=== PATIENT | female | born 1955 | race Caucasian/White ===

== ENCOUNTER → 2016-06-01 | Outpatient (CLI) | payer OTHER ==
[~2016-06-01] MED LIST: ASPI81TA28 PO; B-COTAB53; HYG/25 PO; MULT-506 PO; OSPE1TAB2; POTA1POW; VALA500T60 PO
--- NOTE | 2016-06-02 14:36 | MAMMOGRAPHY REPORT ---
BILATERAL DIGITAL SCREENING MAMMOGRAM TOMOSYNTHESIS WITH CAD: 06/01/2016 CLINICAL HISTORY: Routine screening. Patient has no complaints. TECHNIQUE: Breast tomosynthesis in addition to standard 2D mammography was performed. Current study was also evaluated with a Computer Aided Detection (CAD) system. COMPARISON: Comparison is made to exams dated: 05/14/2015 mammogram, 04/26/2014 mammogram, 04/25/2013 m ammogram, 04/24/2012 mammogram, 04/19/2011 mammogram, and 04/08/2010 mammogram - [facility] enter. BREAST COMPOSITION: The tissue of both breasts is heterogeneously dense, which may obscure small ma sses. FINDINGS: There are two stable benign-appearing calcifications within the right breast. No suspicio us mass, architectural distortion or cluster of new, suspicious microcalcifications is seen. IMPRESSION: ACR BI-RADS CATEGORY 1: NEGATIVE There is no mammographic evidence of malignancy. A 1 year screening mammogram is recommended. The p atient will receive written notification of the results. Approximately 10% of breast cancers are not detected with mammography. A negative mammographic repor t should not delay biopsy if a clinically suggestive mass is present. Brie Us M.D. ay/:06/01/2016 18:27:28 Bail Bonding Agent: Kim Ignacio, [facility] letter sent: Normal 1/2 BI-RADS Code: ACR BI-RADS Category 1: Negative
== END | disposition home or self-care (01) ==
LOC: C.MAMM 14:28
PROVIDERS: ATTEND Family Medicine
DX: Z12.31 Encounter for screening mammogram for malignant neoplasm of breast (principal)

== ENCOUNTER → 2016-10-13 | Outpatient (CLI) | payer OTHER ==
[2016-10-13 14:51] LABS: BLOOD UREA NITROGEN 12 mg/dl (7-18); BUN/CREATININE RATIO 16.8 (10-20); CALCIUM 9.1 mg/dl (8.5-10.1); CARBON DIOXIDE 30 mmol/L (21-32); CHLORIDE 104 mmol/L (98-107); CREATININE 0.74 mg/dl (0.60-1.20); GLUCOSE 112 mg/dl (70-99); MAGNESIUM 2.2 mg/dl (1.8-2.4); PHOSPHORUS 3.2 mg/dl (2.5-4.9); POTASSIUM 3.7 mmol/L (3.5-5.1); SODIUM 137 mmol/L (136-145)
== END | disposition home or self-care (01) ==
LOC: C.LAB1850 13:38
PROVIDERS: ATTEND Internal Medicine Nephrology
DX: N20.0 Calculus of kidney (principal); E55.9 Vitamin D deficiency, unspecified; E87.6 Hypokalemia

== ENCOUNTER → 2016-10-19 | Outpatient (CLI) | payer OTHER ==
[2016-10-19 15:09] LABS: URINE APPEARANCE CLEAR (CLEAR); URINE BILIRUBIN NEG (NEG); URINE COLOR YELLOW; URINE EPITHELIAL CELL AUTO 0-5 /lpf (0-5); URINE NITRITE NEG (NEG); UROBILINOGEN NEG (NEG)
[2016-10-19 15:14] LABS: MANUAL MICROSCOPIC REQUIRED? NO; REVIEW REQ? NO
== END | disposition home or self-care (01) ==
LOC: C.LAB1850 13:56
PROVIDERS: ATTEND Internal Medicine Nephrology
DX: N20.0 Calculus of kidney (principal)

== ENCOUNTER → 2016-11-30 | Day surgery (SDC) | payer OTHER ==
[~2016-11-30] VITALS: Ht 176.5 cm; Wt 65.0 kg
[2016-11-30] VITALS (13 sets, daily range): BP systolic 72–124; BP diastolic 39–90; PULSE 52–90; TEMP 36.4; O2SAT 97–100; Ht 176.5 cm; Wt 65.0 kg
[~2016-11-30] MED LIST changes: +LIDOCAINE HCL 2% 2 ML VIAL (20MG/ML) ONE; +LIDOCAINE HCL 2% VISC SOLN 20 ML UDC ONE; +PROPOFOL IV EMULSION 10 MG/ML 20 ML VIAL IV ONE
--- NOTE | 2016-11-30 07:03 | History & Physical Bridge Note ---
H&P Re-Evaluation Bridge Note: I have examined the patient, reviewed the History & Physical and in the interval since the performance of the History & Physical I have noted the following changes of clinical significance: No changes noted
--- NOTE | 2016-11-30 08:27 | Anesthesiology Progress Note ---
Anesthesia Post Op Note Date & Time Nov 30, 2016 at 08:27 Vital Signs Pain Intensity: 0 Vital Signs Past 12 Hours Date Time Temp Pulse Resp B/P (MAP) Pulse Ox O2 Delivery O2 Flow Rate FiO2 11/30/16 07:50 59 16 79/46 99 Nasal Cannula 4 11/30/16 07:45 52 16 72/39 98 Nasal Cannula 4 11/30/16 07:40 58 16 73/39 99 Nasal Cannula 4 11/30/16 07:35 58 16 83/53 100 Nasal Cannula 4 11/30/16 07:30 81 18 89/53 100 Nasal Cannula 4 11/30/16 07:25 90 18 124/90 100 Nasal Cannula 4 11/30/16 06:57 36.4 58 18 105/84 99 Room Air Notes Mental Status: alert / awake / arousable, participated in evaluation Pt Amnestic to Procedure: Yes Nausea / Vomiting: adequately controlled Pain: adequately controlled Airway Patency, RR, SpO2: stable & adequate BP & HR: stable & adequate Hydration State: stable & adequate Anesthetic Complications: no major complications apparent
--- NOTE | 2016-11-30 08:44 | Cardiology Procedure Brief Nt ---
Preliminary Cardiology Note Procedure Date Nov 30, 2016. Pre-Procedure Diagnosis Aortic valve abnormality Post-Procedure Diagnosis same Procedure(s) Performed LIZETH [employer] Shira Aguilar DO Warp Tester(s) Alexandra Melton, RANJEET Estimated Blood Loss none Preliminary Findings There are two small , thin, linear , filamentous , echodensities , on the aortic aspect of the aortic valve, consistent with Lambls Excrescences. The remaining valves are normal in structure and function. The aortic valve is thin without evidence of sclerosis or scar tissue. There is no or AR. Recommendations Evaluation for non cardiac cause of recurrent fever. Continue ASA 81 mg daily for stroke prevention. Specimens none Anesthesia Anesthesia consult: Dr Roque, propofol Complication(s) Mild transient hypotension with systolic blood pressure in the range of 72 mm Hg , that resolved with administration of IV fluids. Disposition Recovery in the cardiac cardiac cath tech recovery area, then DC to home
--- NOTE | 2016-11-30 10:46 | Discharge Instructions ---
Discharge Instructions Procedure Procedure Date: Nov 30, 2016. Reason for Visit: Aortic Valve Abnormality. Discharge Discharge Date: Nov 30, 2016. 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 * Resume driving when surgeon permits. * Do not make important decisions or sign legal documents today. * Call surgeon for: 1. Temperature elevations greater than 101 degrees F. 2. Uncontrollable pain. 3. Excessive bleeding. 4. Persistent nausea and vomiting. 5. Medication intolerance (nausea, vomiting or rash). * For nausea and vomiting use only clear liquids such as: tea, soda, bouillon until nausea subsides, then gradually increase diet as tolerated. * If you have any concerns or questions, call your surgeon's office. If physician is unavailable and it is an emergency, call 911 or go to the nearest emergency room. Instructions Activity Recommendations: limitations as noted below Recommended Home Diet: resume previous diet Allergies: Coded Allergies: No Known Allergies (Unverified , 08/27/11) Provider Instructions ACTIVITY RECOMMENDATIONS: Resume activities as tolerated with no limitations unless specified. _x_ No lifting over _10_ pounds for 24 hours. _x_ Do not engage in vigorous exercise, sexual activity, or sports for 24 hours. _x_ Do not drive or operate any motorized equipment for 24 hours. _x_ You may return to work/school tomorrow. _x_ Nothing to eat or drink until gag reflex returns. _x_ No HOT or WARM liquids for _10_ hours. _x_ Avoid "scratchy" foods such as potato chips or pretzels for 24 hours following procedure. SPECIAL CARE: If you experience coughing up or vomiting of blood, contact _Dr Jeff DO Follow Up Follow-up with: Keep follow up visit with Dr Aguilar. [facility] Recommendations: Call your doctor if: * Temperature above 101 degrees * Pain not relieved by pain medicine ordered * There is increased drainage or redness from any incision * You have any unanswered questions or concerns. Your Doctors Instructions noted above were prepared by provider Yaya Aguilar. Patient Signature Section: Patient Instructions Signature Page Alessandra Oseguera Patient (or Guardian) Signature/Date: I have read and understand the instructions given to me by my caregivers. Caregiver/RN/Doctor Signature/Date: The above-named patient and/or guardian has received patient instructions on this date. + Original Patient Signature Page (only) stays with chart. Please make copy for patient.
--- NOTE | 2016-11-30 10:50 | TEE ---
*NOTICE TO RECEIVING DEMOCRAT AGENCY This information is strictly Confidential and protected under [place] law. [place] law prohibits you from making any further disclosure of this information unless further disclosure is expressly permitted by the written consent of the person to whom it pertains or is authorized by law. A general authorization for the release of medical or other information is not sufficient for this purpose. Hospital accepts no responsibility if the information is made available to any other person, INCLUDING THE PATIENT. Interpretation Summary * Name: TAVO PÉREZ Study Date: 11/30/2016 07:26 AM BP: 124/90 mmHg * Patient Location: Construction Technician HR: 60 * : 1955 (M/d/yyyy) Gender: Female Height: 69 in * Age: 61 yrs Ethnicity: [place] Weight: 142 lb * Ordering Physician: Yaya Aguilar DO, FAC * Performed By: Diane Johnson RDCS * * Reason For Study: Aortic Valve Abnormality * BSA: 1.8m2 * -- Conclusions -- * The LIZETH was technically adequate. * There are two small, thin, linear, filamentous echodensities on the aortic aspect of the left coronary cusp of the aortic valve , the longer of which is 0.75 cm in lenth. * There is an additional filamentous echodensity noted on the aortic aspect of the right coronary cusp of the aortic valve as visualized with post procedure processing of the 3 D data. * The appearance is compatible with valve strands or Lambls Exscrescences. * The aortic valve cusps are otherwise thin, without sclerosis or suggestion of scar tissue. * The echocardiographyc appearance is not suggestive of acute or subacute endocarditis. Procedure Details * The transesophageal portion of this study was personally supervised by Dr. Aguilar. * LIZETH Probe #1 utilized for procedure. * The study was performed in Cardiac Catheterization Lab. * Time out was conducted by the physician, nurse, and orthodontic lab technician with positive identification of patient and procedure. * Informed consent for Transesophageal Echocardiogram was obtained prior to the procedure. * An intravenous line was placed. A topical anesthetic agent was used for oropharangeal anesthesia. A bite block was inserted. * The patient's vital signs, including blood pressure, heart rate, pulse oximetry and cardiac rhythm were monitored throughout the procedure . * The posterior oropharynx was anesthetized using a topical anesthetic spray. A bite guard was inserted. * A multifrequency, multiplane transesopheageal echocardiographic endoscope was inserted and manipulated in the standard fashion to achieve multiplane views. * The transesophageal probe was passed without difficulty. * The usual views were obtained; basal, mid-esophageal, transgastric and aortic views. * The patient tolerated the procedure well without evidence of orophangeal or esophageal trauma. * A 2D transesophageal echocardiogram with spectral and color flow Doppler was performed. * Start time: 7:26 am End time: 8:04 am Sedation was provided by the anesthesia Department: Dr Roque * A 2D transesophageal echocardiogram was performed. * A 2D transesophageal echocardiogram with color flow Doppler was performed. * A 2D transesophageal echocardiogram with Doppler and color flow Doppler was performed. Left Ventricle * The left ventricle is normal in size. * There is normal left ventricular wall thickness. * Left ventricular systolic function is normal. * Ejection Fraction = 60-65%. * The left ventricular wall motion is normal. Right Ventricle * The right ventricle is normal in size and function. Atria * The left atrial size is normal. * No left atrial mass or thrombus visualized. * No thrombus is detected in the left atrial appendage. * Right atrial size is normal. * The interatrial septum is intact with no evidence for an atrial septal defect. Mitral Valve * The mitral valve anatomy is normal. * There is no evidence of mitral valve prolapse. * There is no vegetation seen on the mitral valve. * There is no mitral valve stenosis. * Significant mitral regurgitation is absent. Tricuspid Valve * The tricuspid valve is normal. * There is no tricuspid stenosis. * There is trace tricuspid regurgitation. Aortic Valve * The aortic valve is trileaflet. * There are two small, thin, linear, filamentous echodensities on the aortic aspect of the left coronary cusp of the aortic valve , the longer of which is 0.75 cm in lenghth. There is an additional filamentous echodensity noted on the right coronary cusp of the aortic valve as visualized with post procedure processing of the 3 D data. The appearance is compatible with valve strands or Lambls Exscrescences. The aortic valve cusps are otherwise thin, without sclerosis or suggestion of scar tissue. * Aortic stenosis is absent. * No aortic regurgitation is present. Pulmonic Valve * The pulmonic valve is not well seen, but is grossly normal. Great Vessels * The aortic root is normal size. * There is no significant atheromatous disease noted in the visualized portion of the thoracic aorta. Pericardium * There is no pericardial effusion. MMode 2D Measurements and Calculations Ao root diam 3.6 cm Ao root area 10.3 cm\S\2
== END | disposition home or self-care (01) ==
LOC: C.CATH 06:32
PROVIDERS: ATTEND Specialist
DX: Q23.9 Congenital malformation of aortic and mitral valves, unspecified (principal); I95.89 Other hypotension; Z79.899 Other long term (current) drug therapy

== ENCOUNTER → 2017-06-02 | Outpatient (CLI) | payer OTHER ==
[~2017-06-02] MED LIST changes: -LIDOCAINE HCL 2% 2 ML VIAL (20MG/ML) ONE; -LIDOCAINE HCL 2% VISC SOLN 20 ML UDC ONE; -PROPOFOL IV EMULSION 10 MG/ML 20 ML VIAL IV ONE
--- NOTE | 2017-06-06 07:49 | MAMMOGRAPHY REPORT ---
BILATERAL DIGITAL SCREENING MAMMOGRAM TOMOSYNTHESIS WITH CAD: 06/02/2017 CLINICAL HISTORY: Routine screening. Patient has no complaints. TECHNIQUE: Breast tomosynthesis in addition to standard 2D mammography was performed. Current study was also evaluated with a Computer Aided Detection (CAD) system. COMPARISON: Comparison is made to exams dated: 06/01/2016 mammogram, 05/14/2015 mammogram, 04/26/2014 ma mmogram, 04/25/2013 mammogram, 04/24/2012 mammogram, and 04/19/2011 mammogram - [facility]ter. BREAST COMPOSITION: The tissue of both breasts is heterogeneously dense, which may obscure small mas ses. FINDINGS: No suspicious masses, calcifications, or areas of architectural distortion are noted in ei ther breast. There has been no significant interval change compared to prior exams. IMPRESSION: ACR BI-RADS CATEGORY 1: NEGATIVE There is no mammographic evidence of malignancy. A 1 year screening mammogram is recommended. The pa tient will receive written notification of the results. Approximately 10% of breast cancers are not detected with mammography. A negative mammographic report should not delay biopsy if a clinically suggestive mass is present. Liss Jauregui M.D. ah/:06/02/2017 14:47:04 Canteen Attendant: Arielle STERNR, M, [facility] letter sent: Normal 1/2 BI-RADS Code: ACR BI-RADS Category 1: Negative
== END | disposition home or self-care (01) ==
LOC: C.MAMM 14:06
PROVIDERS: ATTEND Family Medicine
DX: Z12.31 Encounter for screening mammogram for malignant neoplasm of breast (principal)